=== PATIENT | female | born 1995 | race Caucasian/White ===

== ENCOUNTER 2017-05-18 13:55 | Emergency (ER) | payer OTHER ==
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
[2017-05-18 16:39] VITALS: BP 126/71; PULSE 93; RESP 18; TEMP 98.6; O2SAT 99
== END 2017-05-18 16:39 | disposition home or self-care (01) ==
DX: S20.319A Abrasion of unspecified front wall of thorax, initial encounter (principal); S80.211A Abrasion, right knee, initial encounter; S80.212A Abrasion, left knee, initial encounter; V47.5XXA Car driver injured in collision with fixed or stationary object in traffic accident, initial encounter; Y92.410 Unspecified street and highway as the place of occurrence of the external cause; Y99.8 Other external cause status; Y93.89 Activity, other specified